=== PATIENT | female | born 1965 | race Caucasian/White ===

== ENCOUNTER 2021-10-06 20:22 | Emergency (ER) | payer OTHER ==
[2021-10-06] MEDS ORDERED: Acetaminophen/oxyCODONE 325-5 MG Tab PO ONE (20:47)
[2021-10-06] MEDS ORDERED: Ondansetron 4 MG Tab.DIS PO ONE (20:48)
[2021-10-06] MEDS ORDERED: Take Home: Ondansetron 4 MG Tab.DIS, 5 Tab Pack PO ONE (22:24)
[2021-10-06 22:25] VITALS: BP 133/89; PULSE 80
== END 2021-10-06 22:30 | disposition home or self-care (01) ==
LOC: VM.ED 20:22
DX: M54.2 Cervicalgia (principal)
CPT/HCPCS: 70450; 72125; 99284; 99284-25; A9270-GY; Q0162

== ENCOUNTER 2023-03-24 16:47 | Emergency (ER) | payer OTHER ==
[2023-03-24] MEDS ORDERED: Orphenadrine 60 MG/2 ML Inj IM ONE (17:07)
[2023-03-24] MEDS ORDERED: Ketorolac 30 MG/ML SDV IM ONE (17:07)
[2023-03-24 17:09] VITALS: BP 159/95; PULSE 92
[2023-03-24] MEDS ORDERED: oxyCODONE 5 MG Tab PO ONE (18:26)
== END 2023-03-24 18:45 | disposition home or self-care (01) ==
LOC: VM.ED 16:47
DX: S22.080A Wedge compression fracture of T11-T12 vertebra, initial encounter for closed fracture (principal); V84.9XXA Unspecified occupant of special agricultural vehicle injured in nontraffic accident, initial encounter
CPT/HCPCS: 71046; 72128; 72131; 96372; 99284; A9270-GY; J1885; J2360

== ENCOUNTER 2023-09-20 10:35 | Emergency (ER) | payer OTHER ==
[2023-09-20 11:11] LABS: HEMATOCRIT 39.7 % (33.0-47.0); HEMOGLOBIN 13.4 g/dL (12.0-16.0); MEAN CORPUSCULAR HGB CONC 33.8 g/dL (32.0-36.0); MEAN CORPUSCULAR VOLUME 91.9 fL (78.0-93.0); PLATELET COUNT,PLT 200 x10^3/uL (130-400); RED BLOOD CELL COUNT 4.32 x10^6/uL (4.00-5.50); WHITE BLOOD CELL COUNT,WBC 3.5 x10^3/uL (4.0-10.0)
[2023-09-20] MEDS: HYDROmorphone 1 MG/ML Syringe IVPUSH ONE (11:13)
[2023-09-20] MEDS: Ondansetron 4 MG/2 ML SDV IVPUSH PRN (11:13)
[2023-09-20 11:24] LABS: ANION GAP 14.2 mmol/L (5-15); BLOOD UREA NITROGEN,BUN 14 mg/dL (7-18); CALCIUM 9.2 mg/dL (8.5-10.1); CARBON DIOXIDE,CO2 26 mmol/L (21-32); CHLORIDE,CL 106 mmol/L (98-107); ESTIMATED GFR 66 mL/min (>=60); GLUCOSE RANDOM 100 mg/dL (70-99); POTASSIUM,K 4.2 mmol/L (3.5-5.1); SODIUM,NA 142 mmol/L (136-145)
[2023-09-20 11:29] LABS: PROTHROMBIN TIME 9.9 SEC (8.9-11.5); PTT,PARTIAL THROMBOPLSTIN TIME 29.6 SEC (21.9-33.8)
[2023-09-20 11:30] LABS: A/G RATIO 0.84; ALANINE AMINOTRANSFERASE,ALT 60 U/L (14-59); ALBUMIN 3.6 g/dL (3.4-5.0); ALKALINE PHOSPHATASE 128 U/L (46-116); ASPARTATE AMNIOTRANSFERASE,AST 65 U/L (15-37); BILIRUBIN TOTAL 0.4 mg/dL (0.2-1.0); PROTEIN TOTAL,TP 7.9 g/dL (6.4-8.2)
[2023-09-20 11:35] LABS: BAND PERCENT MAN 2 % (0-6); GIANT PLATELETS RARE; LYMPHOCYTES ABSOLUTE MAN 1.4 x10^3/uL (1.0-4.8); LYMPHOCYTES PERCENT MAN 40 % (25-50); MONOCYTES ABSOLUTE MAN 0.4 x10^3/uL (0.0-0.8); MONOCYTES PERCENT MAN 12 % (2-11); NEUTROPHILS ABSOLUTE MAN 1.7 x10^3/uL (1.8-7.7); PLATELET COUNT ESTIMATE ADEQUATE; SEG NEUTROPHILS PERCENT MAN 46 % (50-80); TOXIC GRANULATION 2+ MODERATE; VACUOLATED NEUTROPHILS 1+ SLIGHT
[2023-09-20] MEDS: Iopamidol 612 MG/ML 100 ML Bottle IVPUSH ONE (12:49)
[2023-09-20 13:20] LABS: CORONAVIRUS COVID-19 NAA NEGATIVE (NEGATIVE); INFLUENZA A NAA NEGATIVE (NEGATIVE); RESPIRATORY SYNCYTIAL VIR NAA NEGATIVE (NEGATIVE)
[2023-09-20] MEDS: Lidocaine 1% with EPINEPHrine 1:100,000 20 ML MDV INFILT ONE (13:21)
[2023-09-20] MEDS: Take Home: Cephalexin 500 MG Cap, 6 Cap Pack PO ONE (15:12)
[2023-09-22 15:12] LABS: INFLUENZA B NAA POSITIVE (NEGATIVE)
== END 2023-09-20 15:26 | disposition home or self-care (01) ==
LOC: SUPCPDRO 10:35 → VM.ED 10:35
DX: S01.412A Laceration without foreign body of left cheek and temporomandibular area, initial encounter (principal); S01.511A Laceration without foreign body of lip, initial encounter; I60.9 Nontraumatic subarachnoid hemorrhage, unspecified; Z79.899 Other long term (current) drug therapy; W55.22XA Struck by cow, initial encounter
CPT/HCPCS: 0241U; 12011; 12013; 70450; 70486; 71260; 72125; 72128; 72131; 74177; 80053; 83605; 85025; 85610; 85730; 93005; 93010; 96374; 96375; 99284; 99285-25; A9270-GY; J1170; J2405; J3490; Q9967